=== PATIENT | female | born 1940 | race Caucasian/White ===

== ENCOUNTER 2018-07-01 13:26 | Day surgery (SDC) | payer MEDICARE, BC ==
[~2018-07-01 13:26] MED LIST: Buffered Lidocaine 0.9% SYRIN* 5 ML/SYR SYRINGE INTRADERM ONE
[2018-07-01] MEDS ORDERED: Clindamycin 900 MG IVPREMIX(* 900 MG/50 ML SDV IV ONE (13:34)
[2018-07-01] MEDS ORDERED: Midazolam* 1 MG/ML 5 ML VIAL (5 MG) ONE (17:08)
[2018-07-01] MEDS ORDERED: Methylene Blue 0.5 %* 50 MG/10 ML AMP IV ONE (17:12)
[2018-07-01] MEDS ORDERED: Bupivacaine 0.25% W/EPI* 10 ML SDV ONE (17:13)
[2018-07-01] MEDS ORDERED: Lidocain 1% EPI 1:100,000 * 30 ML MDV ONE (17:13)
[2018-07-01] MEDS ORDERED: Mineral Oil Sterile, TOPICAL* 25 ML BTL ONE (17:13)
[2018-07-01] MEDS ORDERED: fentaNYL* 50 MCG/ML 2 ML VIAL (100 MCG VIAL) ONE (17:29)
[2018-07-01] MEDS ORDERED: Naloxone* 0.4 MG/ML 1 ML VIAL IV PRN (17:37)
[2018-07-01] MEDS ORDERED: fentaNYL* 50 MCG/ML 2 ML VIAL (100 MCG VIAL) IV PRN (17:37)
[2018-07-01] MEDS ORDERED: Ondansetron INJ* 2 MG/ML VIAL IV PRN (17:37)
[2018-07-01 18:28] VITALS: BP 124/59
== END 2018-07-01 18:50 | disposition home or self-care (01) ==
LOC: OR 13:26
PROVIDERS: ATTEND Plastic Surgery
DX: L72.0 Epidermal cyst (principal); I35.0 Nonrheumatic aortic (valve) stenosis; K21.9 Gastro-esophageal reflux disease without esophagitis; E03.9 Hypothyroidism, unspecified; M81.0 Age-related osteoporosis without current pathological fracture; Z85.3 Personal history of malignant neoplasm of breast
CPT/HCPCS: 88304; A9270-GY; J2250; J3010

== ENCOUNTER 2019-10-15 07:16 | Day surgery (SDC) | payer MEDICARE, BC ==
[~2019-10-15 07:16] MED LIST changes: -Buffered Lidocaine 0.9% SYRIN* 5 ML/SYR SYRINGE INTRADERM ONE; +Buffered Lidocaine 1% SYRIN* 1 ML/SYRINGE INTRADERM ONE; +Lactated Ringers 1000 ML Bag* 1,000 ML IV SCH
[2019-10-15] MEDS ORDERED: Lidocaine 1% MPF* 2 ML VIAL ONE (08:25)
[2019-10-15] MEDS ORDERED: Betamethasone INJ* 6 MG/ML 5 ML VIAL (30 MG) ONE (08:25)
[2019-10-15] MEDS ORDERED: Bupivacaine 0.25% SDV* 30 ML ONE (08:25)
[2019-10-15] MEDS ORDERED: Midazolam* 1 MG/ML 5 ML VIAL (5 MG) ONE (08:34)
[2019-10-15] MEDS ORDERED: fentaNYL* 50 MCG/ML 2 ML VIAL (100 MCG VIAL) ONE (08:42)
[2019-10-15] MEDS ORDERED: Dexamethasone IV* 4 MG/ML 1 ML (4 MG) ONE (08:44)
[2019-10-15] MEDS ORDERED: ceFAZolin 2 GM in NS PREMIX(*) 2 GM/100 ML BAG IVPB ONE (08:47)
[2019-10-15] MEDS ORDERED: Naloxone* 0.4 MG/ML 1 ML VIAL IV PRN (09:07)
[2019-10-15] MEDS ORDERED: fentaNYL* 50 MCG/ML 2 ML VIAL (100 MCG VIAL) IV PRN (09:07)
[2019-10-15] MEDS ORDERED: oxyCODONE/Acetamin 5/325 MG* TAB PO PRN (09:07)
[2019-10-15] MEDS ORDERED: Ondansetron INJ* 2 MG/ML VIAL IV PRN (09:07)
[2019-10-15 09:32] VITALS: BP 113/65
--- NOTE | 2019-10-15 14:24 | OP ---
OPERATIVE REPORT: DATE OF OPERATION: 10/15/19 DATE OF : 42 SURGEON: Maximino Torres MD AEROBICS TEACHER: ZEINA Vasquez ANESTHESIOLOGIST: Dr. Red. ANESTHESIA: Local MAC. PRE-OP DIAGNOSES: 1. Right index, middle and ring trigger fingers. 2. Left index and middle trigger fingers. POST-OP DIAGNOSES: 1. Right index, middle and ring trigger fingers. 2. Left index and middle trigger fingers. OPERATIVE PROCEDURE: 1. Right index trigger finger release. 2. Right middle trigger finger release. 3. Right ring finger trigger release. 4. Left index finger trigger finger steroid injection. 5. Left middle trigger finger steroid injection. INDICATIONS: Ms. Keren Jimenez has pretty severe trigger fingers. We talked about her treatment opt ions. She has developed contractures. She understands that she is unlikely to get relief of the con tracture, but that we cannot stop triggering and make it easier for her to close the hand. She under stands that she wants to proceed. She understands there is risk associated with this. ESTIMATED BLOOD LOSS: 2 mL. COMPLICATIONS: None. FINDINGS: See above and below. DESCRIPTION OF PROCEDURE: Ms. Keren Jimenez was seen in the preoperative holding area. The correct site, side, and procedures were identified. We came back to the operating room. We had a time-out a nd I injected the operative site with 0.25% plain Marcaine. I then went over and first injected the left index finger A1 stella and tendon sheath with 1 mL of 1% plain lidocaine and 6 mg of betamethaso ne. I then injected the left middle finger A1 stella tendon sheath area with 1 mL of 1% plain lidocaine a nd 6 mg of betamethasone Band-Aids were applied at both injection sites. We then prepped and draped the right arm and a time-out was performed. I made 1 cm longitudinal incisions over the A1 pulleys of the index, middle, and ring fingers. Full- thickness flaps were bluntly raised off of the tendon sheath. I then began on the index finger and th e Ragnell retractors were placed. I then released the A1 stella along the radial third longitudinall y with the 15 blade. Tenotomy scissors were used to complete the release distally and proximally. Th e tenosynovitis was excised and the adhesions between the tendons were released. In like manner, I then performed the release of the middle trigger finger. I placed Ragnell retracto rs releasing the tendon sheath and the fascia proximally. I then did the right ring finger in the same exact manner, releasing the A1 stella in its entirety as well as the fascia proximally. Tenosynovectomy was performed around all the tendons. Adhesions wer e released around all of the tendons. The wounds were irrigated out. Skin was closed with 4-0 nylon suture. Soft dressings were applied. She was taken to the recovery room in stable condition. [id number]/[facility] #: [id number]
== END 2019-10-15 10:00 | disposition home or self-care (01) ==
LOC: OREAST 07:16
PROVIDERS: ATTEND Orthopaedic Surgery Hand Surgery
DX: M65.321 Trigger finger, right index finger (principal); M65.331 Trigger finger, right middle finger; M65.341 Trigger finger, right ring finger; M65.322 Trigger finger, left index finger; M65.332 Trigger finger, left middle finger; I44.7 Left bundle-branch block, unspecified; E03.9 Hypothyroidism, unspecified; K21.9 Gastro-esophageal reflux disease without esophagitis; E78.5 Hyperlipidemia, unspecified; I25.10 Atherosclerotic heart disease of native coronary artery without angina pectoris; Z86.718 Personal history of other venous thrombosis and embolism
CPT/HCPCS: J0690; J0702; J1100; J2250; J3010; J3490